=== PATIENT | male | born 1975 | race Caucasian/White ===

== ENCOUNTER → 2022-05-19 14:31 | Outpatient (CLI) | payer OTHER, SELFPAY ==
--- NOTE | ~2022-05-19 | US_ITS ---
EXAMINATION: US venous doppler UE LT DATE: 05/19/2022 15:02 INDICATION: Left upper limb pain. TECHNIQUE: Grayscale ultrasound images without and with compression and Doppler ultrasound images of the left upper extremity veins were obtained. COMPARISON: None. FINDINGS: The visualized portions of the left internal jugular vein, subclavian vein, axillary vein, brachial v eins, basilic vein, cephalic vein, radial vein, and ulnar vein are patent. IMPRESSION: 1. No deep venous thrombosis. Reviewed, dictated and finalized at location A.
== END ==
DX: D68.51 Activated protein C resistance (principal); M79.602 Pain in left arm
CPT/HCPCS: 93971